=== PATIENT | female | born 1960 | race African-American/Black ===

== ENCOUNTER 2018-07-12 07:44 | Inpatient (IN) ==
[2018-07-12] MEDS ORDERED: ASPIRIN 325 MG TABLET PO STA (08:21)
[2018-07-12 08:34] LABS: Basophils % 0.9 % (0.0-0.8); Eosinophils # 0.3 10*3/uL (0.0-0.87); Eosinophils % 6.2 % (0.00-10.9); Hemoglobin 11.5 GM/DL (12.0-16.0); Immature Granulocytes % 0.2 %; Immature Granulocytes Absolute 0.01 #; Lymphocytes # 1.5 10*3/uL (1.4-4.0); Lymphocytes % 31.5 % (21.3-54.2); Mean Corpuscular HGB Conc 31.9 GM/DL (32-36); Mean Corpuscular Hemoglobin 29 PG (27-34); Mean Corpuscular Volume 91.8 FL (87-102); Mean Platelet Volume 10.5 FL (9.6-12.0); Monocytes # 0.3 10*3/uL (0.11-0.8); Neutrophils # 2.6 10*3/uL (1.4-7.4); Neutrophils % 54.2 % (38.7-73.9); Platelet Count 234 T/CUMM (130-400); Red Blood Count 3.92 MC/CUMM (3.8-5.5); Red Cell Distribution Width 13.8 % (9.3-17.3); White Blood Count 4.7 T/CUMM (4-12)
[2018-07-12 08:42] LABS: INR 1.1; PT Patient Result 11.2 SECS
[2018-07-12 08:55] LABS: Apearance,Urine CLEAR (Clear); Bilirubin,Urine Negative (Negative); Blood, Urine Negative (Negative); Calcium Oxalate Crystals,Urine Occasional /HPF (Few); Glucose,Urine (UA) Negative (Negative); Ketones,Urine Negative (Negative); Mucus,Urine Occasional /LPF (Occasional); Nitrite,Urine Negative (Negative); Protein,Urine Negative; RBC,Urine <1 /HPF (0-4); Squamous Epithelial Cell,Urine Occasional /HPF (0-10); Urine Color Yellow (Yellow); Urine Specific Gravity 1.011 (1.001-1.035); WBC,Urine 1 /HPF (0-6)
[2018-07-12 09:00] LABS: Alanine Aminotransferase 14 U/L (13-56); Albumin 3.3 G/DL (3.4-5.0); Alkaline Phosphatase 113 U/L (45-117); Aspartate Amino Transferase 14 U/L (0-37); Bilirubin,Total < 0.39 MG/DL (0.2-1.0); Blood Urea Nitrogen 15 MG/DL (7-18); Glucose 97 MG/DL (74-106); Osmolality,Calculated 286.8 MOS/KG (273-304); Potassium 3.4 MMOL/L (3.5-5.1); Sodium 144 MMOL/L (136-145)
[2018-07-12 09:19] LABS: Barbiturates Screen,Urine Negative (Negative); Benzodiazepines Screen,Urine Negative (Negative); Cannabinoid Screen,Urine Negative (Negative); Opiate Screen,Urine Negative (Negative); Phencyclidine Screen,Urine Negative (Negative)
[2018-07-12] MEDS ORDERED: ONDANSETRON 4 MG/2 ML VIAL IV PRN (10:09)
[2018-07-12] MEDS ORDERED: ALBUTEROL 2.5 MG/3 ML NEB RESP TX PRN (10:13)
[2018-07-12] MEDS: GABAPENTIN 300 MG CAPSULE PO SCH ×2 (15:50→20:57)
[2018-07-12] MEDS: ACETAMINOPHEN 325 MG TABLET PO PRN (15:50)
[2018-07-12] MEDS: POTASSIUM CHLORIDE 20 MEQ TABLET PO PRN (20:57)
[2018-07-13] MEDS: POTASSIUM CHLORIDE 20 MEQ TABLET PO PRN ×2 (00:06→04:54)
[2018-07-13 04:42] LABS: Basophils % 0.9 % (0.0-0.8); Eosinophils # 0.3 10*3/uL (0.0-0.87); Eosinophils % 6.7 % (0.00-10.9); Hematocrit 36.4 VOL% (35.7-47.0); Hemoglobin 11.7 GM/DL (12.0-16.0); Lymphocytes % 43.3 % (21.3-54.2); Mean Corpuscular HGB Conc 32.1 GM/DL (32-36); Mean Corpuscular Hemoglobin 29 PG (27-34); Mean Platelet Volume 10.5 FL (9.6-12.0); Monocytes # 0.4 10*3/uL (0.11-0.8); Monocytes % 8.2 % (1.7-12.7); Neutrophils # 1.9 10*3/uL (1.4-7.4); Neutrophils % 40.9 % (38.7-73.9); Platelet Count 231 T/CUMM (130-400); Red Cell Distribution Width 13.8 % (9.3-17.3); White Blood Count 4.7 T/CUMM (4-12)
[2018-07-13 05:07] LABS: Alanine Aminotransferase 13 U/L (13-56); Albumin 2.9 G/DL (3.4-5.0); Alkaline Phosphatase 108 U/L (45-117); Aspartate Amino Transferase 12 U/L (0-37); Bilirubin,Total < 0.39 MG/DL (0.2-1.0); Blood Urea Nitrogen 16 MG/DL (7-18); Calcium 8.6 MG/DL (8.5-10.1); Cholesterol 173 MG/DL (50-200); Glucose 91 MG/DL (74-106); HDL Cholesterol 68 MG/DL (40-60); Potassium 3.9 MMOL/L (3.5-5.1); Risk Ratio 2.54; Sodium 143 MMOL/L (136-145); Thyroid Stimulating Hormone 0.626 uIU/ml (0.358-3.74); Total Protein 6.7 G/DL (6.4-8.3); Triglycerides 40 MG/DL (2-150)
[2018-07-13] MEDS: ACETAMINOPHEN 325 MG TABLET PO PRN (06:19)
[2018-07-13] MEDS ORDERED: amLODIPine 5 MG TABLET PO SCH (09:00)
[2018-07-13] MEDS: PANTOPRAZOLE 40 MG TABLET PO SCH (10:07)
[2018-07-13] MEDS: GABAPENTIN 300 MG CAPSULE PO SCH ×3 (10:07→21:41)
[2018-07-13] MEDS: ASPIRIN EC 81 MG TABLET PO SCH (10:07)
[2018-07-13] MEDS ORDERED: MAGNESIUM SULF RIDER 4 GM in PREMIX 1 EACH IV PRN (11:30)
[2018-07-13] MEDS ORDERED: MAGNESIUM SULF RIDER 2 GM in PREMIX 1 EACH IV PRN (11:30)
[2018-07-14 05:07] LABS: Basophils % 0.9 % (0.0-0.8); Eosinophils # 0.3 10*3/uL (0.0-0.87); Eosinophils % 6.9 % (0.00-10.9); Hematocrit 37.9 VOL% (35.7-47.0); Hemoglobin 12.1 GM/DL (12.0-16.0); Immature Granulocytes % 0.2 %; Immature Granulocytes Absolute 0.01 #; Lymphocytes # 1.8 10*3/uL (1.4-4.0); Lymphocytes % 40.6 % (21.3-54.2); Mean Corpuscular HGB Conc 31.9 GM/DL (32-36); Mean Corpuscular Hemoglobin 29 PG (27-34); Mean Corpuscular Volume 91.5 FL (87-102); Monocytes # 0.3 10*3/uL (0.11-0.8); Monocytes % 7.6 % (1.7-12.7); Neutrophils % 43.8 % (38.7-73.9); Platelet Count 240 T/CUMM (130-400); Red Blood Count 4.14 MC/CUMM (3.8-5.5); Red Cell Distribution Width 13.8 % (9.3-17.3); White Blood Count 4.5 T/CUMM (4-12)
[2018-07-14 05:22] LABS: Alanine Aminotransferase 13 U/L (13-56); Albumin 3.1 G/DL (3.4-5.0); Alkaline Phosphatase 106 U/L (45-117); Aspartate Amino Transferase 11 U/L (0-37); Bilirubin,Total < 0.39 MG/DL (0.2-1.0); Blood Urea Nitrogen 14 MG/DL (7-18); Calcium 8.8 MG/DL (8.5-10.1); Glucose 92 MG/DL (74-106); Osmolality,Calculated 286.8 MOS/KG (273-304); Potassium 3.7 MMOL/L (3.5-5.1); Sodium 144 MMOL/L (136-145)
[2018-07-14] MEDS: ACETAMINOPHEN 325 MG TABLET PO PRN (08:19)
[2018-07-14] MEDS ORDERED: PROPRANOLOL LA 80 MG CAPSULE PO SCH (09:00)
[2018-07-14] MEDS: GABAPENTIN 300 MG CAPSULE PO SCH (09:21)
[2018-07-14] MEDS: PANTOPRAZOLE 40 MG TABLET PO SCH (09:21)
[2018-07-14] MEDS: ASPIRIN EC 81 MG TABLET PO SCH (09:22)
[2018-07-14 14:42] VITALS: BP 107/80
== END 2018-07-14 13:10 | disposition home or self-care (01) | DRG 103 ==
LOC: EDBD → EDUNIT# → N.ED 07:44 → SUATTDRO 09:00 → N.EDINP 09:00 → INTOOBSV 09:00 → N.2W 09:26 → N.TELES 11:30
PROVIDERS: ADMIT Family Medicine; ATTEND Internal Medicine